=== PATIENT | male | born 1960 | race Caucasian/White ===

== ENCOUNTER 2025-07-16 09:45 | Outpatient (CLI) | payer BC, SELFPAY ==
--- NOTE | 2025-07-16 10:15 | CRLHL7_ITS ---
For Patients: As a result of the Century Cures Act, medical imaging exams and procedure reports are released immediately into your electronic medical record. You may view this report before your referring provider. If you have questions, please contact your health care provider. Indication: Right hip pain. Comparison: 06/03/2025 Procedure : Informed consent was obtained. The site was marked. Time-out was performed. The skin of the right hip was cleansed with ChloraPrep. A sterile drape was placed. 8 cc of 1 percent lidocaine was administered for superficial anesthesia. Subsequently a 22 gauge spinal needle was introduced into the right hip joint under intermittent fluoroscopic guidance. Injection of 7 cc 1 percent lidocaine and 2 cc 40 milligram/cc Depo-Medrol then performed into the right hip joint. The needle was removed and hemostasis achieved with direct pressure. A dressing was placed. The patient tolerated the procedure well without immediate complication. Total fluoroscopy time 12 seconds. Impression: Successful fluoroscopically guided right hip injection with 80 milligrams of Depo-Medrol. Dictated by Kevin White MD @ 07/16/2025 11:40:17 AM (Electronically Signed)
== END 2025-07-16 09:46 | disposition home or self-care (01) ==
PROVIDERS: PCP Family Medicine; Visit Provider Orthopaedic Surgery Sports Medicine
DX: M16.11 Unilateral primary osteoarthritis, right hip (principal); M25.551 Pain in right hip
CPT/HCPCS: 20610; 77002; Q9966